=== PATIENT | male | born 1975 | race Caucasian/White ===

== ENCOUNTER 2023-12-13 20:39 | Emergency (ER) | payer BC | END 2023-12-13 22:26 | disposition home or self-care (01) | LOC: JP.ED 20:39 | DX: S62.502A Fracture of unspecified phalanx of left thumb, initial encounter for closed fracture (principal); W23.1XXA Caught, crushed, jammed, or pinched between stationary objects, initial encounter; Y93.89 Activity, other specified | CPT/HCPCS: 73130-LT; 99283 ==